=== PATIENT | male | born 1995 | race Caucasian/White ===

== ENCOUNTER 2016-09-13 21:49 | Emergency (ER) | payer OTHER ==
--- NOTE | 2016-09-13 22:35 | PDOC ---
History of Present Illness - General Chief Complaint: Injury Stated Complaint: RT 1ST TOE INJURY Time Seen by Provider: 09/13/16 22:21 History Source: Patient Exam Limitations: No Limitations - History of Present Illness Initial Comments: 09/13/16 22:33 This is a 21-year-old male comes in complaining of right great toe pain. Patient injured his toe well wrestling approximately 36 hours ago. Patient is complaining of Aysha pressure sensation and blood underneath the toenail. Patient denies any other injuries. PAST MEDICAL HISTORY: no significant history PAST SURGICAL HISTORY: no significant history FAMILY HISTORY: no pertinant history SOCIAL HISTORY: Pt lives with family and is employed. MEDICATIONS: reviewed ALLERGIES: As per nursing notes Review of Systems General: No fevers or chills, no weakness, no weight loss HEENT: No change in vision. No sore throat,. No ear pain CardioVascular: No chest pain or shortness of breath Respiratory:No cough, or wheezing. Gastrointestinal: no nausea, vomitting, diarrhea or constipation, No rectal bleeding Genitourinary: No dysuria, hematuria, or frequency Musculoskeletal: Right great toe injury as per history of present illness Neurologic: No headache, vertigo, dizziness or loss of consciousness Psychiatric: nor depression Skin: No rashes or easy bruising Endocrine: no increased thirst or abnormal weight change Allergic: no skin or latex allergy All other systems reviewed and normal GENERAL: The patient is awake, alert, and fully oriented, in no acute distress. HEAD: Normal with no signs of trauma. EYES: Pupils equal, round and reactive to light, extraocular movements intact, sclera anicteric, conjunctiva clear. EXTREMITIES: Normal range of motion, no edema. Right great toe: There is no bony tenderness on palpation of the toe there is full range of motion of the toe. There is a large subungual hematoma covering approximately 90% of the toenail. NEUROLOGICAL: Normal speech, normal gait. PSYCH: Normal mood, normal affect. SKIN: Warm, Dry, normal turgor, no rashes or lesions noted. Procedure: Trephination of the toenail Trephination of the toenail was performed using an electrocautery. A moderate amount of the fluid was drained from underneath the toenail. Patient tolerated well Past History - Past Medical History Allergies/Adverse Reactions: Allergies Allergy/AdvReac Type Severity Reaction Status Date / Time No Known Allergies Allergy Unverified 09/13/16 22:32 Home Medications: Ambulatory Orders NK [No Known Home Medication] 09/13/16 *DC/Admit/Observation/Transfer Diagnosis at time of Disposition: Subungual hematoma of great toe of right foot - Discharge Dispostion Disposition: HOME Condition at time of disposition: Stable Admit: No - Patient Instructions Additional Instructions: Tylenol or Motrin as needed for pain The toenail will come off at some point in the future. Return to the emergency department immediately with ANY new, persistent or worsening symptoms. Continue any medications as previously prescribed by your physician. You should follow up with your primary doctor as soon as possible regarding today's emergency department visit. . Please make sure your doctor reviews the results of your emergency evaluation. Thank you for coming to the Emergency Department today for your care. It was a pleasure to see you today. Please note that your evaluation is INCOMPLETE until you follow-up with your doctor.
[2016-09-13 22:37] VITALS: BP 119/71; PULSE 73; TEMP 98.4; BMI 23.7
== END 2016-09-13 22:39 | disposition home or self-care (01) ==
LOC: FER 21:49
PROC: 0H9RXZZ Drainage of Toe Nail, External Approach (ICD-10-PCS; principal; 2016-09-13)
DX: S90.211A Contusion of right great toe with damage to nail, initial encounter (principal); Y93.72 Activity, wrestling; Y93.69 Activity, other involving other sports and athletics played as a team or group; Y92.9 Unspecified place or not applicable
CPT/HCPCS: 99281-25

== ENCOUNTER 2019-07-16 19:55 | Emergency (ER) | payer OTHER ==
[2019-07-16 20:02] VITALS: BP 130/75; PULSE 86; TEMP 98.1; BMI 26.4
--- NOTE | 2019-07-16 20:19 | PDOC ---
History of Present Illness - General Chief Complaint: Pain Stated Complaint: FINGER PAIN Time Seen by Provider: 07/16/19 20:05 History Source: Patient Exam Limitations: No Limitations - History of Present Illness Initial Comments: 07/16/19 20:14 Patient is a 24-year-old male who presents to the ED with concern that he has an infection to his finger after pulling a cuticle 1 week ago. He states his left ring finger is throbbing and red. He is concerned that he needs an I&D. He states he has been soaking the finger in hot water, salt and peroxide without any relief. He states the finger is throbbing. He denies any fevers or drainage from the finger. He denies any past medical history or allergies to medications. Past History - Past Medical History Allergies/Adverse Reactions: Allergies Allergy/AdvReac Type Severity Reaction Status Date / Time No Known Allergies Allergy Verified 07/16/19 20:04 Home Medications: Ambulatory Orders Cephalexin [Keflex] 500 mg PO TID #21 capsule 07/16/19 Mupirocin Ointment [Bactroban 2% Ointment -] 1 applic TP BID 7 Days #1 tube - Psycho Social/Smoking Cessation Hx Smoking History: Current some day smoker Number of Cigarettes Smoked Daily: 10 Information on smoking cessation initiated: No Hx Alcohol Use: No Drug/Substance Use Hx: No Review of Systems - Review of Systems Comments:: 07/16/19 20:15 - Review of Systems Able to Perform ROS?: Yes Constitutional: No: Fever, Chills, Loss of Appetite, Night Sweats, Weakness Respiratory: No: Cough, Shortness of Breath, Wheezing, Sputum Production Cardiac (ROS): No: Chest Pain, Chest Tightness, Palpitations, Irregular Heart Beat, Edema ABD/GI: No: Nausea, Vomiting, Abdominal Pain, Diarrhea Musculoskeletal: No: Muscle Pain, Back Pain, Joint Pain, Muscle Weakness, Neck Pain Integumentary: No: Lesions, Rash; + cellulitis left ring finger Neurological: No: Headache, Numbness, Tingling, Weakness, Speech Difficulties *Physical Exam - Vital Signs Last Vital Signs Temp Pulse Resp BP Pulse Ox 98.1 F 86 18 130/75 100 07/16/19 19:58 07/16/19 19:58 07/16/19 19:58 07/16/19 19:58 07/16/19 19:58 - Physical Exam 07/16/19 20:15 - Physical Exam General Appearance: Nourished, Appropriately Dressed, No Distress Neck: Supple, No Lymphadenopathy (R), No Lymphadenopathy (L), No Rigidity, No Decreased range of motion Respiratory/Chest: Lungs Clear, Normal Breath Sounds. No Respiratory Distress, No Accessory Muscle Use Cardiovascular: Regular Rhythm, Regular Rate, S1, S2 Musculoskeletal: Normal Inspection. No Decreased Range of Motion Extremity: Normal Capillary Refill, Normal Inspection Integumentary: Normal Color, Dry. No Rash. Left ring finger with erythema without discrete paronychia appreciated on the lateral aspect of the nailbed. Skin sloughing appreciated. Moderate tenderness to palpation. No abscess appreciated. 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 There is no discrete abscess appreciated for I&D. Plan: -Continue warm/hot soaks to help resolve infection -Keflex and Bactroban sent to the patient's pharmacy -Patient has been made aware that if a discrete abscess forms he may need to return to the ED for I&D. -He understands and agrees with this treatment plan and the patient is stable for discharge. Discharge - Discharge Information Problems reviewed: Yes Clinical Impression/Diagnosis: Cellulitis of left ring finger Condition: Stable Disposition: HOME - Additional Discharge Information Prescriptions: Cephalexin [Keflex] 500 mg PO TID #21 capsule Mupirocin Ointment [Bactroban 2% Ointment -] 1 applic TP BID 7 Days #1 tube - Follow up/Referral - Patient Discharge Instructions Patient Printed Discharge Instructions: DI for Cellulitis -- Adult Additional Instructions: Continue warm/hot soaks of your finger several times a day to help resolve your infection. Take the antibiotics as prescribed and complete the entire course. Use the antibiotic ointment twice daily for 7 days. Avoid picking your cuticles as this can cause infection. If you develop a discrete abscess you may need to return to the emergency department to have an incision and drainage. - Post Discharge Activity
== END 2019-07-16 20:22 | disposition home or self-care (01) ==
LOC: JERFT 19:55
DX: L03.012 Cellulitis of left finger (principal)
CPT/HCPCS: 99283-25

== ENCOUNTER 2019-12-08 19:43 | Emergency (ER) | payer OTHER ==
--- NOTE | 2019-12-08 19:54 | PDOC ---
Rapid Medical Evaluation Time Seen by Provider: 12/08/19 19:46 Medical Evaluation: Allergies Allergy/AdvReac Type Severity Reaction Status Date / Time No Known Allergies Allergy Verified 07/16/19 20:04 12/08/19 19:46 CC: slipped while on duty and twisted ankle now with pain to area, walking but with pain when pushing off, denies hx of injury to area Exam: FROM of ankle, tenderness to left lat aspect of malleolus and distal aspect of 1st MTP Plan: ft Discharge Disposition - Diagnosis Ankle injury - Referrals - Patient Instructions - Post Discharge Activity
[2019-12-08 19:56] VITALS: BP 136/76; PULSE 60; TEMP 98; BMI 25.7
--- NOTE | 2019-12-08 20:03 | PDOC ---
History of Present Illness - General Chief Complaint: Injury Stated Complaint: L ANKLE INJURY- UNSPECIFIED Time Seen by Provider: 12/08/19 19:46 History Source: Patient - History of Present Illness Occurred: reports: just prior to arrival Pain Location: reports: lower extremity Method of Injury: Yes: fall Past History - Medical History Allergies/Adverse Reactions: Allergies Allergy/AdvReac Type Severity Reaction Status Date / Time No Known Allergies Allergy Verified 12/08/19 19:50 Home Medications: Ambulatory Orders Cephalexin [Keflex] 500 mg PO TID #21 capsule 07/16/19 Mupirocin Ointment [Bactroban 2% Ointment -] 1 applic TP BID 7 Days #1 tube 07/16/19 COPD: No - Immunization History Immunization Up to Date: No - Psycho-Social/Smoking History Smoking History: Never smoked Have you smoked in the past 12 months: No Number of Cigarettes Smoked Daily: 10 - Substance Abuse Hx (Audit-C & DAST Scrn) How often the patient has a drink containing alcohol: Never Score: In Men: 4 or > Positive; In Women: 3 or > Positive: 0 Screen Result (Pos requires Nsg. Audit-10AR): Negative Review of Systems - Review of Systems Musculoskeletal: Yes: Joint Pain. No: Joint Swelling *Physical Exam - Vital Signs Last Vital Signs Temp Pulse Resp BP Pulse Ox 98 F 60 18 136/76 99 12/08/19 19:47 12/08/19 19:47 12/08/19 19:47 12/08/19 19:47 12/08/19 19:47 - Physical Exam General Appearance: Yes: Appropriately Dressed. No: Apparent Distress HEENT: positive: Normal Voice Neck: positive: Supple Respiratory/Chest: negative: Respiratory Distress Extremity: positive: Normal Inspection, Normal Range of Motion. negative: Tender, Swelling Integumentary: positive: Dry, Warm Neurologic: positive: Fully Oriented, Alert, Normal Mood/Affect ED Treatment Course - RADIOLOGY Radiology Studies Ordered: Category Date Time Status ANKLE & FOOT-LEFT* [RAD] Stat Radiology 12/08/19 20:01 Ordered Medical Decision Making - Medical Decision Making 12/08/19 20:02 24 yo M, no sig hx, states he twisted L ankle and then fell at work tonight. Pain hurts w/ weight bearing see exam R/o ankle/foot fx, m/l sprain Exam unremarkable -declines pain meds -XR 12/08/19 20:16 XR neg for fx. Dc w/ pain control. Ortho f/u as needed Discharge - Discharge Information Problems reviewed: Yes Clinical Impression/Diagnosis: Foot sprain Qualifiers: Encounter type: initial encounter Laterality: left Qualified Code(s): S93.602A - Unspecified sprain of left foot, initial encounter Condition: Good Disposition: HOME - Follow up/Referral Referrals: Joshua Yanes MD [Staff Physician] - - Patient Discharge Instructions Patient Printed Discharge Instructions: DI for Foot Sprain Additional Instructions: Your xray showed no broken bone You suffered a mild sprain Take motrin for pain as needed If pain persists after 2 weeks, f/u with Dr Yanes of ortho - Post Discharge Activity Work/Back to School Note: Back to Work
[2019-12-08] MEDS ORDERED: IBUPROFEN 600 MG TABLET (FP) PO ONE (20:14)
[2019-12-08] MEDS ORDERED: IBUPROFEN 400 MG TABLET (FP) PO ONE (20:14)
== END 2019-12-08 20:20 | disposition home or self-care (01) ==
LOC: JERFT 19:43 → JER 19:43 → JERFT 20:20
DX: S93.602A Unspecified sprain of left foot, initial encounter (principal)
CPT/HCPCS: 73610-TC-LT-FY; 73630-TC-LT; 99284-25

== ENCOUNTER 2020-01-04 14:44 | Emergency (ER) | payer OTHER ==
[2020-01-04] MEDS ORDERED: TETRACAINE 0.5% OPHTH SOLN 2 ML BOTTLE ONE (15:00)
[2020-01-04] MEDS ORDERED: FLUORESCEIN NA 1 EA STRIP ONE (15:00)
[2020-01-04] MEDS ORDERED: TETRACAINE 0.5% HCL 0.6ML DROPPER.BOTTLE OS ONE (15:01)
[2020-01-04] MEDS ORDERED: FLUORESCEIN NA 1 EA STRIP OS ONE (15:01)
--- NOTE | 2020-01-04 15:01 | PDOC ---
History of Present Illness - General Chief Complaint: Foreign Body (FB) Stated Complaint: EYE Time Seen by Provider: 01/04/20 14:47 History Source: Patient Exam Limitations: No Limitations Past History - Travel History Traveled outside of the country in the last 30 days: No Close contact w/someone who was outside of country & ill: No - Medical History Allergies/Adverse Reactions: Allergies Allergy/AdvReac Type Severity Reaction Status Date / Time No Known Allergies Allergy Verified 12/08/19 19:50 Home Medications: Ambulatory Orders Cephalexin [Keflex] 500 mg PO TID #21 capsule 07/16/19 Mupirocin Ointment [Bactroban 2% Ointment -] 1 applic TP BID 7 Days #1 tube 07/16/19 Erythromycin 0.5% Eye Ointment [Erythromycin 0.5% Eye Ointment -] 1 applic OS TID #1 tube 01/04/20 COPD: No - Immunization History Immunization Up to Date: No - Psycho-Social/Smoking History Smoking History: Never smoked Have you smoked in the past 12 months: No Number of Cigarettes Smoked Daily: 10 Review of Systems - Review of Systems Able to Perform ROS?: Yes Comments:: 01/04/20 21:53 CONSTITUTIONAL: Absent: fever, chills, diaphoresis, generalized weakness, malaise, loss of appetite HEENT: Present: L Eye pain Absent: rhinorrhea, nasal congestion, throat pain, throat swelling, difficulty swallowing, mouth swelling, ear pain, visual Changes SKIN: Absent: rash, itching, pallor NEUROLOGIC: Absent: headache, focal weakness or paresthesias, dizziness, unsteady gait, seizure, mental status changes, bladder or bowel incontinence PSYCHIATRIC: Absent: anxiety, depression, suicidal or homicidal ideation, hallucinations. Is the patient limited Sammarinese proficient: No *Physical Exam - Physical Exam 01/04/20 21:54 GENERAL: The patient is awake, alert, and fully oriented, in no acute distress. HEAD: Normal with no signs of trauma. EYES: Pupils equal, round and reactive to light, extraocular movements intact, sclera anicteric, R conjunctiva clear. Left conjunctiva is mildly erythematous. Visual acuity, OU 20/20, OS 20/20, 0D 20/20. Fluorescein staining reveals no uptake of dye. EXTREMITIES: Normal range of motion, no edema. NEUROLOGICAL: Normal speech, normal gait. PSYCH: Normal mood, normal affect. SKIN: Warm, Dry, normal turgor, no rashes or lesions noted. Medical Decision Making - Medical Decision Making 01/04/20 21:57 Patient is a 24-year-old male no past medical history who presents to the ER today with left eye pain. 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 He states that since then it has been itching and burning. Denies visual changes, headache, dizziness. A/P: Eye pain On exam left eye is mildly erythematous. Fluorescein staining reveals no corneal abrasions at this time. Likely irritant from dirt that flew up from the road. We will prescribe erythromycin ointment for comfort. Refer to Ortho for further management of symptoms. Advised to follow-up within a week if not improving. Discharge home I discussed the physical exam findings, ancillary test results and final shailesh gnoses with the patient. I answered all of the patient's questions. The patient was satisfied with the care received and felt comfortable with the discharge plan and treatment plan. The Patient agrees to follow up with the primary care physician/specialist within 24-72 hours. Return precautions were given. Discharge - Discharge Information Problems reviewed: Yes Clinical Impression/Diagnosis: Eye irritation Condition: Stable Disposition: HOME - Admission No - Additional Discharge Information Prescriptions: Erythromycin 0.5% Eye Ointment [Erythromycin 0.5% Eye Ointment -] 1 applic OS TID #1 tube - Follow up/Referral Referrals: Dioni Min MD [Staff Physician] - - Patient Discharge Instructions Patient Printed Discharge Instructions: DI for Eye Pain Additional Instructions: You were seen for your eye irritation today. There was no foreign body seen in the eye. You may use erythromycin ointment 3 times a day as needed for pain or itching. Please follow-up with your eye doctor this week. If you do not have one a referral has been provided to you. Return to the ER for visual changes, worsening pain or if you have any changes in her symptoms. - Post Discharge Activity Work/Back to School Note: Back to Work
[2020-01-04 15:12] VITALS: BP 115/67; PULSE 79; TEMP 98.1; BMI 24.5
== END 2020-01-04 16:07 | disposition home or self-care (01) ==
LOC: JERFT 14:44
DX: H57.12 Ocular pain, left eye (principal)
CPT/HCPCS: 99284-25

== ENCOUNTER 2020-06-26 22:20 | Emergency (ER) | payer OTHER ==
[2020-06-26 22:29] VITALS: BP 128/83; PULSE 66; TEMP 98.1; BMI 26.4
[2020-06-26] MEDS ORDERED: METHOCARBAMOL 500 MG TABLET PO ONE (23:07)
[2020-06-26] MEDS ORDERED: IBUPROFEN 400 MG TABLET (FP) PO ONE (23:07)
[2020-06-26] MEDS ORDERED: LIDOCAINE 5% TOPICAL PATCH TP ONE (23:07)
[2020-06-26] MEDS ORDERED: LIDOCAINE 5% TOPICAL PATCH ONE (23:15)
[2020-06-26] MEDS ORDERED: IBUPROFEN 600 MG TABLET (FP) PO ONE (23:15)
[2020-06-26] MEDS ORDERED: METHOCARBAMOL 500 MG TABLET ONE (23:15)
[2020-06-27] MEDS ORDERED: LIDOCAINE PATCH REMOVAL MC ONE (11:00)
== END 2020-06-26 23:51 | disposition home or self-care (01) ==
LOC: JER 22:20
DX: M54.6 Pain in thoracic spine (principal); W19.XXXA Unspecified fall, initial encounter
CPT/HCPCS: 72070-TC-FY; 99284-25

== ENCOUNTER 2020-09-26 13:57 | Emergency (ER) | payer OTHER ==
[2020-09-26 14:02] VITALS: BP 121/70; PULSE 68; TEMP 98; BMI 25.7
[2020-09-26] MEDS ORDERED: IBUPROFEN 600 MG TABLET (FP) PO ONE ×2 (15:31→15:32)
== END 2020-09-26 15:42 | disposition home or self-care (01) ==
LOC: JERFT 13:57
DX: M25.551 Pain in right hip (principal); R10.30 Lower abdominal pain, unspecified
CPT/HCPCS: 73523-TC-FY; 99283-25

== ENCOUNTER 2021-01-17 23:04 | Emergency (ER) | payer BC, OTHER ==
[2021-01-17 23:17] VITALS: BP 118/73; PULSE 70; TEMP 97; BMI 24.4
== END 2021-01-18 01:49 | disposition home or self-care (01) ==
LOC: JER 23:04
DX: J02.9 Acute pharyngitis, unspecified (principal); B30.1 Conjunctivitis due to adenovirus; Z11.52 Encounter for screening for COVID-19
CPT/HCPCS: 87880; 99283-25; C9803; U0003; U0005

== ENCOUNTER 2021-08-06 20:46 | Emergency (ER) | payer OTHER ==
[2021-08-06 21:00] VITALS: BP 121/78; PULSE 70; TEMP 98.6; BMI 25.6
[2021-08-06] MEDS ORDERED: ACETAMINOPHEN 500 MG TABLET (FP) PO ONE (21:40)
[2021-08-06] MEDS ORDERED: ACETAMINOPHEN 325 MG TABLET (FP) ONE (21:49)
== END 2021-08-06 22:17 | disposition home or self-care (01) ==
LOC: JER 20:46
DX: S93.401A Sprain of unspecified ligament of right ankle, initial encounter (principal); X50.9XXA Other and unspecified overexertion or strenuous movements or postures, initial encounter
CPT/HCPCS: 73610-TC-RT-FY; 73630-TC-RT-FY; 99283-25

== ENCOUNTER 2021-12-29 09:21 | Emergency (ER) | payer OTHER ==
[2021-12-29 09:30] VITALS: BP 131/63; PULSE 59; RESP 17; TEMP 98.7; BMI 25.0
[2021-12-29] MEDS ORDERED: IBUPROFEN 600 MG TABLET (FP) PO ONE ×2 (11:10→11:25)
== END 2021-12-29 11:33 | disposition home or self-care (01) ==
LOC: JER 09:21 → JERFT 09:21
DX: M25.511 Pain in right shoulder (principal)
CPT/HCPCS: 73030-TC-RT-FY; 99283-25

== ENCOUNTER 2022-03-06 09:35 | Emergency (ER) | payer OTHER ==
[2022-03-06 09:50] VITALS: BP 125/67; PULSE 18; RESP 18; TEMP 97.6; BMI 25.7
[2022-03-06] MEDS ORDERED: IBUPROFEN 600 MG TABLET (FP) PO ONE ×2 (10:02→10:04)
[2022-03-06] MEDS ORDERED: ACETAMINOPHEN 500 MG TABLET (FP) ONE (10:04)
== END 2022-03-06 11:10 | disposition home or self-care (01) ==
LOC: JERFT 09:35
DX: S76.011A Strain of muscle, fascia and tendon of right hip, initial encounter (principal)
CPT/HCPCS: 73521-TC-FY; 99283-25

== ENCOUNTER 2022-05-07 23:20 | Emergency (ER) | payer OTHER ==
[2022-05-07 23:35] VITALS: BP 113/62; PULSE 56; RESP 20; TEMP 98.1; BMI 25.0
[2022-05-08] MEDS ORDERED: LIDOCAINE 5% TOPICAL PATCH TP ONE (00:07)
[2022-05-08] MEDS ORDERED: METHOCARBAMOL 500 MG TABLET PO ONE (00:07)
[2022-05-08] MEDS ORDERED: METHOCARBAMOL 500 MG TABLET ONE (00:17)
[2022-05-08] MEDS ORDERED: LIDOCAINE 5% TOPICAL PATCH ONE (00:17)
[2022-05-08] MEDS ORDERED: LIDOCAINE PATCH REMOVAL MC SCH (22:00)
== END 2022-05-08 00:46 | disposition home or self-care (01) ==
LOC: JER 23:20
DX: M54.6 Pain in thoracic spine (principal)
CPT/HCPCS: 99283-25

== ENCOUNTER 2022-08-30 22:24 | Emergency (ER) | payer OTHER ==
[2022-08-30 22:31] VITALS: BP 139/76; PULSE 58; RESP 18; TEMP 97.8; BMI 25.0
[2022-08-30] MEDS ORDERED: KETOROLAC TROMETHAMINE 30 MG/1 ML VIAL IM ONE (22:55)
[2022-08-30] MEDS ORDERED: KETOROLAC TROMETHAMINE 30 MG/1 ML VIAL ONE (22:55)
== END 2022-08-30 23:31 | disposition home or self-care (01) ==
LOC: JERFT 22:24
PROC: 3E0233Z Introduction of Anti-inflammatory into Muscle, Percutaneous Approach (ICD-10-PCS; principal; 2022-08-30)
DX: M25.551 Pain in right hip (principal); W18.49XA Other slipping, tripping and stumbling without falling, initial encounter; Y99.0 Civilian activity done for income or pay
CPT/HCPCS: 72170-TC-FY; 73502-TC-RT-FY; 99284-25

== ENCOUNTER 2023-05-13 11:57 | Emergency (ER) | payer OTHER ==
[2023-05-13 12:08] VITALS: BP 133/99; PULSE 58; RESP 18; TEMP 98; BMI 25.0
[2023-05-13] MEDS ORDERED: KETOROLAC TROMETHAMINE 30 MG/1 ML VIAL IM ONE (13:44)
[2023-05-13] MEDS ORDERED: KETOROLAC TROMETHAMINE 30 MG/1 ML VIAL ONE (13:47)
== END 2023-05-13 14:00 | disposition home or self-care (01) ==
LOC: JERFT 11:57
PROC: 3E0233Z Introduction of Anti-inflammatory into Muscle, Percutaneous Approach (ICD-10-PCS; principal; 2023-05-13)
DX: M25.512 Pain in left shoulder (principal); S46.012A Strain of muscle(s) and tendon(s) of the rotator cuff of left shoulder, initial encounter; X50.9XXA Other and unspecified overexertion or strenuous movements or postures, initial encounter; Y99.0 Civilian activity done for income or pay
CPT/HCPCS: 73030-TC-LT-FY; 99284-25

== ENCOUNTER 2023-05-16 18:54 | Emergency (ER) | payer OTHER ==
[2023-05-16 19:19] VITALS: BP 163/85; PULSE 67; RESP 18; TEMP 98.1; BMI 25.0
[2023-05-16] MEDS ORDERED: KETOROLAC TROMETHAMINE 30 MG/1 ML VIAL IM ONE (20:45)
[2023-05-16] MEDS ORDERED: KETOROLAC TROMETHAMINE 30 MG/1 ML VIAL ONE (21:25)
[2023-05-16 21:43] LABS: BASO % 0.7 % (0-2.0); EOS % 1.4 % (0-4.5); HEMATOCRIT 44.2 % (35.4-49); HEMOGLOBIN 14.9 GM/dL (11.7-16.9); LYMPH % 25.3 % (8-40); MCH 30.7 pg (25.7-33.7); MCHC 33.8 g/dl (32.0-35.9); MEAN PLT VOLUME 8.3 fl (7.5-11.1); MONO % 13.4 % (3.8-10.2); NEUT % 59.2 % (42.8-82.8); PLATELET COUNT 248 10^3/uL (134-434); RBC 4.86 M/mm3 (4.00-5.60); RDW 12.9 % (11.9-15.9); WHITE BLOOD COUNT 4.7 K/mm3 (4.0-10.0)
[2023-05-16 21:59] LABS: POTASSIUM 4.1 mmol/L (3.5-5.1)
[2023-05-16 22:01] LABS: CALCIUM 9.2 mg/dL (8.5-10.1)
[2023-05-16 22:02] LABS: ALBUMIN 3.8 g/dl (3.4-5.0); BLOOD UREA NITROGEN 20.1 mg/dL (7-18)
[2023-05-16 22:05] LABS: CREATININE 1.2 mg/dL (0.55-1.3)
[2023-05-16 22:07] LABS: BILIRUBIN,TOTAL 0.8 mg/dL (0.2-1); TOT PROT 6.6 g/dl (6.4-8.2)
== END 2023-05-16 22:33 | disposition home or self-care (01) ==
LOC: JER 18:54
PROC: 3E0233Z Introduction of Anti-inflammatory into Muscle, Percutaneous Approach (ICD-10-PCS; principal; 2023-05-16)
DX: M25.512 Pain in left shoulder (principal); R07.89 Other chest pain; R06.02 Shortness of breath; R05.9 Cough, unspecified; R09.81 Nasal congestion; R51.9 Headache, unspecified; R00.2 Palpitations; R42 Dizziness and giddiness; R63.4 Abnormal weight loss; F43.22 Adjustment disorder with anxiety; Z20.822 Contact with and (suspected) exposure to COVID-19
CPT/HCPCS: 0241U-QW; 36415; 71046-TC-FY; 73030-TC-LT-FY; 80053; 84439; 84443; 84484; 85025; 93005; 93010; 99285-25

== ENCOUNTER 2023-05-24 23:50 | Emergency (ER) | payer BC, OTHER ==
[2023-05-25 00:12] VITALS: BMI 23.1
[2023-05-25] MEDS ORDERED: ACETAMINOPHEN 500 MG TABLET (FP) ONE (00:34)
[2023-05-25] MEDS ORDERED: ACETAMINOPHEN 500 MG TABLET (FP) PO ONE (00:38)
[2023-05-25] MEDS ORDERED: ALBUTEROL SO4 2.5/IPRATROPIUM 0.5 INH SOL 3 ML VIAL.NEB. NEB ONE ×2 (00:39→00:44)
[2023-05-25 01:43] VITALS: BP 138/84; PULSE 84; RESP 16; TEMP 98.8
== END 2023-05-25 02:07 | disposition home or self-care (01) ==
LOC: JER 23:50
PROC: 3E0F7GC Introduction of Other Therapeutic Substance into Respiratory Tract, Via Natural or Artificial Opening (ICD-10-PCS; principal; 2023-05-25)
DX: R50.9 Fever, unspecified (principal); R05.9 Cough, unspecified; R09.3 Abnormal sputum; R07.9 Chest pain, unspecified; R51.9 Headache, unspecified; R53.83 Other fatigue; J20.9 Acute bronchitis, unspecified; J10.1 Influenza due to other identified influenza virus with other respiratory manifestations; B97.4 Respiratory syncytial virus as the cause of diseases classified elsewhere; Z20.822 Contact with and (suspected) exposure to COVID-19
CPT/HCPCS: 0241U-QW; 71046-TC-FY; 87651; 99284-25

== ENCOUNTER 2023-07-25 19:12 | Emergency (ER) | payer BC, OTHER ==
[2023-07-25 19:17] VITALS: BP 133/70; PULSE 57; RESP 20; TEMP 97.4; BMI 25.0
[2023-07-25] MEDS ORDERED: KETOROLAC TROMETHAMINE 30 MG/1 ML VIAL ONE (20:13)
[2023-07-25] MEDS ORDERED: LIDOCAINE 4% PATCH TP ONE (20:13)
[2023-07-25] MEDS: LIDOCAINE 4% PATCH TP ONE (20:22)
[2023-07-25] MEDS: KETOROLAC TROMETHAMINE 30 MG/1 ML VIAL IM ONE (20:22)
[2023-07-25] MEDS ORDERED: diazePAM 5 MG TABLET ONE (21:20)
[2023-07-25] MEDS: diazePAM 5 MG TABLET PO ONE (21:26)
[2023-07-26] MEDS ORDERED: LIDOCAINE PATCH REMOVAL MC SCH (08:00)
== END 2023-07-25 21:25 | disposition home or self-care (01) ==
LOC: JER 19:12
PROC: 3E0233Z Introduction of Anti-inflammatory into Muscle, Percutaneous Approach (ICD-10-PCS; principal; 2023-07-25)
DX: S16.1XXA Strain of muscle, fascia and tendon at neck level, initial encounter (principal); M54.2 Cervicalgia; X50.9XXA Other and unspecified overexertion or strenuous movements or postures, initial encounter; Y93.89 Activity, other specified
CPT/HCPCS: 72125-TC; 99284-25

== ENCOUNTER 2024-01-07 16:24 | Emergency (ER) | payer OTHER, BC ==
[2024-01-07 16:30] VITALS: BP 122/70; PULSE 60; RESP 19; TEMP 97.8; BMI 25.0
[2024-01-07] MEDS ORDERED: KETOROLAC TROMETHAMINE 30 MG/1 ML VIAL IM ONE (17:28)
[2024-01-07] MEDS ORDERED: ACETAMINOPHEN 500 MG TABLET (FP) PO ONE (17:28)
[2024-01-07] MEDS ORDERED: KETOROLAC TROMETHAMINE 30 MG/1 ML VIAL ONE (17:37)
[2024-01-07] MEDS ORDERED: ACETAMINOPHEN 325 MG TABLET (FP) ONE (17:37)
== END 2024-01-07 18:09 | disposition home or self-care (01) ==
LOC: JER 16:24 → JERFT 16:24
DX: S69.91XA Unspecified injury of right wrist, hand and finger(s), initial encounter (principal); X50.1XXA Overexertion from prolonged static or awkward postures, initial encounter; Y99.0 Civilian activity done for income or pay
CPT/HCPCS: 73110-TC-RT-FY; 73130-TC-RT-FY; 99283-25